=== PATIENT | female | born 2000 | race Caucasian/White ===

== ENCOUNTER 2021-03-28 11:03 | Emergency (ER) | payer MEDICAID, SELFPAY ==
--- NOTE | ~2021-03-28 | CT_ITS ---
EXAMINATION: CT thoracic lumbar w con DATE: 03/28/2021 13:45 INDICATION: Extremity weakness. TECHNIQUE: Computed tomography (CT) of the thoracic and lumbar spine was performed with 100 mL Omnipa que 350 intravenous contrast. Automated exposure control and iterative reconstruction technique were employed. The dose-length product was 1122 mGy-cm. COMPARISON: None FINDINGS: CT THORACIC SPINE: There is 6 degrees dextrocurvature of cervicothoracic spine. There is mild chronic anterior wedging of T7 and T8 vertebral bodies. The intervertebral disc heights are normal. There is mild bilateral facet joint osteoarthritis at a few levels. No neural foraminal stenosis or central c anal stenosis. CT LUMBAR SPINE: There is 7 degrees levocurvature of lumbar spine. Vertebral body heights and interve rtebral disc heights are normal. The following disc levels are specifically discussed: L1-L2: The disc does not extend beyond the endplate margin. There is mild bilateral facet joint osteo arthritis. There is no neural foraminal stenosis. There is no central canal stenosis. L2-L3: The disc does not extend beyond the endplate margin. There is mild bilateral facet joint osteo arthritis. There is no neural foraminal stenosis. There is no central canal stenosis. L3-L4: The disc is bulging. There is mild left facet joint osteoarthritis. There is mild bilateral ne ural foraminal stenosis. There is mild central canal stenosis. L4-L5: The disc is bulging. There is mild bilateral facet joint osteoarthritis. There is mild bilater al neural foraminal stenosis. There is mild central canal stenosis. L5-S1: The disc is bulging. There is mild bilateral facet joint osteoarthritis. There is mild bilater al neural foraminal stenosis. There is mild central canal stenosis. IMPRESSION: 1. Mild thoracic and lumbar spondylosis. Reviewed, dictated and finalized at location A.
--- NOTE | ~2021-03-28 | CT_ITS ---
EXAMINATION: CT cervical spine w con DATE: 03/28/2021 13:45 INDICATION: Extremity weakness. TECHNIQUE: Computed tomography (CT) of the cervical spine was performed with 100 mL Omnipaque 350 int ravenous contrast. Automated exposure control and iterative reconstruction technique were employed. T he dose-length product was 1144.28 mGy-cm. COMPARISON: None FINDINGS: There is mild kyphosis of cervical spine. There is 5 degrees dextrocurvature of cervical sp ine. Vertebral body heights and intervertebral disc heights are normal. At C7-T1, there is mild bilat eral facet joint osteoarthritis. No neural foraminal stenosis or central canal stenosis. IMPRESSION: 1. No etiology for the patient's symptoms. Reviewed, dictated and finalized at location A.
--- NOTE | ~2021-03-28 | CT_ITS ---
EXAMINATION: CT brain wo con DATE: 03/28/2021 13:45 INDICATION: Syncope. Extremity weakness. TECHNIQUE: Computed tomography (CT) of the head was performed without intravenous contrast. The mA wa s adjusted according to patient size. Iterative reconstruction technique was employed. Exam dose: 60 5.33 mGy-cm total exam DLP. COMPARISON: None FINDINGS: No intracranial mass lesion or hemorrhage or cerebrovascular accident. No midline shift or mass effect effect. Normal ventricular size. Normal isabel-white matter differentiation. No subdural or epidural hematoma. Included paranasal sinuses and mastoid air cells are normally developed and aerated, with exception o f mild soft tissue thickening of the left ethmoid air cells.. No fracture or bone destruction of the cranial vault. IMPRESSION: No intracranial abnormality Reviewed, dictated and finalized at Location A. Reviewed, dictated and finalized at location B. IMPRESSION: No intracranial abnormality
--- NOTE | ~2021-03-28 | XR_ITS ---
EXAMINATION: XR chest 2V EXAM DATE: 03/28/2021 13:39 INDICATION: Syncope. Numbness and tingling in legs. TECHNIQUE: Frontal and lateral projections of the chest obtained and reviewed. There is no prior britany dy for comparison. FINDINGS: The lungs are clear. There are no pleural effusions. The cardiomediastinal silhouette is within normal limits. There is no pneumothorax suspected. The bones and soft tissues are unremarkab le. IMPRESSION: Normal chest x-ray exam. Reviewed, dictated and finalized at location A. IMPRESSION: Normal chest x-ray exam.
[2021-03-28 11:16] VITALS: BP 128/88; PULSE 85; RESP 14; TEMP 36.8; O2SAT 99
--- NOTE | 2021-03-28 11:23 | ED.NEUROSD ---
HPI - Neuro Symptoms/Deficit General Chief Complaint: Anxiety Stated Complaint: weakness Time Seen by Provider: 03/28/21 11:23 Source: patient and family Mode of arrival: ambulatory Limitations: no limitations History of Present Illness HPI Narrative: Patient is a 21-year-old female with a history of anxiety who presents for evaluation of syncopal event. Patient also endorsing lower extremity weakness. Patient reports that 2 days previously, patient had a witnessed syncopal event at a gathering. Patient had consumed 2 alcoholic beverages, states that she had eaten normally that day, when she suddenly began to feel weak in her lower extremities and then had a positive loss of consciousness. Patient's mother arrived to the location to find the patient awake, alert and oriented reporting extreme weakness. Patient symptoms resolved, and patient was at work this morning when another episode of lower extremity weakness occurred. Patient is now reporting mid and upper back pain. She reports weakness and numbness in both legs, greater on the right leg than on the left. She denies fever or chills. No history of IV drug use. No nausea, vomiting, chest pain or shortness of breath. Patient only reports fatigue and feeling generally tired. No other complaints other than the weakness and numbness in the lower extremities. No difficulty with bowel or bladder function. No urinary retention. Related Data Allergies Allergy/AdvReac Type Severity Reaction Status Date / Time No Known Allergies Allergy Mild Verified 03/28/21 11:39 Review of Systems Review of Systems: Narrative: CONSTITUTIONAL: Denies fever, chills, or sweats. EYES: Denies visual changes, redness, or discharge. ENT: Denies rhinorrhea, congestion, sore throat, or otalgia. CARDIOVASCULAR: Denies chest pain, palpitations, or edema. RESPIRATORY: Denies cough or dyspnea. GASTROINTESTINAL: Denies abdominal pain, nausea, vomiting, or diarrhea. GENITOURINARY: Denies dysuria or hematuria. SKIN: Denies rash or itching. MUSCULOSKELETAL: Reports back pain, lower extremity weakness NEUROLOGIC: Denies headache, reports numbness in bilateral lower extremities PSYCHIATRIC: History of anxiety [facility] Social History Social History (Updated 03/28/21 @ 12:24 by Adwoa Aguiar MD) Smoking status: Never smoker Alcohol intake: current Substance use: never Living arrangements: with family Gender identity (if verbalized by the patient): Female Exam Narrative: Exam Narrative: GENERAL: Awake, alert, conversant HEAD: Normocephalic, atraumatic. EYES: 2+ PERRLA and EOMI. ENT: Nares clear, no rhinorrhea or epistaxis. Mucous membranes moist. NECK: Supple. CHEST: No respiratory distress, breathing even and non labored HEART: Regular rate, sinus rhythm ABDOMEN:Non distended, non tender EXTREMITIES: Normal range of motion. No edema. SKIN: Warm, dry, no rash. NEURO: Alert and oriented x3. Finger to nose intact bilaterally, slowed bilaterally. EOMs intact without nystagmus. No facial droop/asymmetry noted bilaterally. Grimace intact. Intact sensation in face. Hearing intact bilaterally. Shoulder shrug intact. Strength 5/5 bilateral upper extremities. Strength 3/5 bilateral lower extremities. Pt can barely lift her legs off of the hospital bed. Reflexes 2+ patellar. Heel to tatum intact bilaterally, but is incredibly slowed and almost rigid in movement. Pt can ambulate with a narrow based steady gait, no ataxia. Course Vital Signs Vital signs: Vital Signs Temperature 36.8 C 03/28/21 11:16 Pulse Rate 85 03/28/21 11:16 Respiratory Rate 14 03/28/21 11:16 Blood Pressure 128/88 03/28/21 11:16 Pulse Oximetry 99 03/28/21 11:16 Temperature 36.8 C 03/28/21 11:16 Pulse Rate 81 03/28/21 13:47 Respiratory Rate 27 H 03/28/21 13:47 Blood Pressure 128/80 03/28/21 13:47 Pulse Oximetry 100 03/28/21 13:47 MDM - Neuro Symptoms/Deficit MDM Narrative Medical decision jean-pierre
--- NOTE | 2021-03-28 12:20 | ECG_ITS ---
Measurements Intervals [place] Rate: 70 P: 42 AK: 133 QRS: 51 QRSD: 102 T: 31 QT: 388 QTc: 421 Interpretive Statements SINUS RHYTHM NORMAL ECG Electronically Signed On 03-28-2021 13:17:04 CDT by Viral Waldrop D.O.
[2021-03-28] MEDS: SODIUM CHLORIDE 0.9% IV 1,000 ML 999 ML IV CONT (12:36)
[2021-03-28 12:51] LABS: Basophils Percent Auto 0.4 % (0.2-1.2); Eosinophils Absolute Auto 0.2 K/mm3 (0-0.3); Eosinophils Percent Auto 1.9 % (0-4.4); Hematocrit 39.4 % (37.0-47.0); Hemoglobin 13.1 g/dL (12.0-15.0); Immature Granulocyte Absolute 0.02 K/mm3 (0.00-0.031); Immature Granulocyte Percent A 0.2 % (0-0.5); Lymphocytes Absolute Auto 2.98 K/mm3 (0.9-3.2); Lymphocytes Percent Auto 35.3 % (18.3-44.2); Mean Corpuscular HGB Conc 33.2 g/dl (32-36); Mean Corpuscular Volume 87.2 fl (80-100); Mean Platelet Volume 9.3 fl (7.4-10.4); Monocytes Absolute Auto 0.5 K/mm3 (0.1-0.6); Monocytes Percent Auto 5.5 % (2.6-8.5); Neutrophils Absolute Auto 4.8 K/mm3 (1.3-6.7); Neutrophils Percent Auto 56.7 % (45.5-73.1); Platelet Count Result 389 k/mm3 (150-375); Red Blood Count 4.52 M/mm3 (4.2-5.4); Red Cell Distribution Width 13.1 % (11.5-14.5); White Blood Count 8.4 K/mm3 (4.5-10.0)
[2021-03-28 12:57] LABS: Add Urine Microscopic? YES; Appearance Urine Cloudy (Clear); Bilirubin Urine Negative (Negative); Blood Urine Negative (Negative); Color Urine Yellow (Yellow); Glucose Urine UA Negative (Negative); Ketones Urine Negative (Negative); Leukocyte Esterase Ur Trace LEU/UL (Negative); Mucus Urine Heavy /lpf; Nitrate Urine Negative (Negative); Protein Urine 1+ mg/dL (Negative); Specific Grav Ur 1.028 (1.001-1.035); Squamous Epithelial Cell Urine Rare /hpf (Few)
[2021-03-28 13:01] LABS: INR 0.9; Prothrombin Time 13.1 Seconds (11.1-14.7)
[2021-03-28 13:02] LABS: Partial Thromboplastin Time 29.3 SECONDS (22.3-36.8)
[2021-03-28 13:09] LABS: Anion Gap 9 mmol/L (8-16); Blood Urea Nitrogen 9 mg/dL (7-17); CRP 0.8 mg/dL (<1.0); Calcium 9.2 mg/dL (8.4-10.2); Carbon Dioxide 24 mmol/L (22-30); Chloride 106 mmol/L (98-107); Estimated CRCL calculation 114 ml/min; Estimated Glomerular Filt Rate > 60; Glucose 92 mg/dL (65-105); Sodium 139 mmol/L (137-145)
[2021-03-28 13:15] LABS: Amphetamine Screen Urine Negative (Negative); Barbiturate Screen Urine Negative (Negative); Benzodiazepines Screen Urine Negative (Negative); Cannabinoid Screen Urine Positive (Negative); Cocaine Screen Urine Negative (Negative); Methadone Screen Urine Negative (Negative); Opiate Screen Urine Negative (Negative); Phencyclidine Screen Urine Negative (Negative)
[2021-03-28 13:24] LABS: Troponin I < 0.012 ng/mL (0.000-0.034)
[2021-03-28 13:43] LABS: Thyroid Stimulating Hormone 0.432 uIU/mL (0.465-4.680)
[2021-03-28 13:47] VITALS: BP 128/80; PULSE 81; RESP 27; O2SAT 100
[2021-03-28 15:05] VITALS: BP 132/89; PULSE 88; RESP 20; O2SAT 100
== END 2021-03-28 15:07 | disposition home or self-care (01) ==
PROVIDERS: Emergency Provider Emergency Medicine; PCP Family Medicine
DX: F41.9 Anxiety disorder, unspecified (principal); R20.2 Paresthesia of skin; M47.816 Spondylosis without myelopathy or radiculopathy, lumbar region
CPT/HCPCS: 36415; 70450; 71046; 72126; 72129; 72132; 80048; 80307; 81001; 84443; 84484; 85025; 85610; 85730; 86140; 93005; 96360; 99284; J7030; Q9967

== ENCOUNTER 2023-01-03 11:11 | Outpatient (RCR) | payer OTHER, SELFPAY ==
[2023-01-05] MEDS: RHO(D) IMMUNE GLOBULIN 300 MCG/2 ML SYRINGE IM (13:46)
== END 2023-04-03 23:59 | disposition home or self-care (01) ==
LOC: ANHLAB 11:11
PROVIDERS: PCP Family Medicine; Visit Provider Obstetrics & Gynecology
DX: Z29.13 Encounter for prophylactic Rho(D) immune globulin (principal); O36.0190 Maternal care for anti-D [Rh] antibodies, unspecified trimester, not applicable or unspecified; Z3A.00 Weeks of gestation of pregnancy not specified
CPT/HCPCS: 36415; 85461; 86850; 86900; 86901; 90384; J2790

== ENCOUNTER 2023-03-05 09:00 | Outpatient (CLI) | payer OTHER, SELFPAY ==
[2023-03-05 09:15] VITALS: BP 148/107; PULSE 97
[2023-03-05 09:27] LABS: Basophils Absolute Auto 0.1 K/mm3 (0.0-0.1); Basophils Percent Auto 0.4 % (0.2-1.2); Eosinophils Absolute Auto 0.1 K/mm3 (0-0.3); Hematocrit 34.1 % (37.0-47.0); Hemoglobin 11.3 g/dL (12.0-15.0); Immature Granulocyte Absolute 0.07 K/mm3 (0.00-0.031); Immature Granulocyte Percent A 0.6 % (0-0.5); Lymphocytes Absolute Auto 2.89 K/mm3 (0.9-3.2); Lymphocytes Percent Auto 22.7 % (18.3-44.2); Mean Corpuscular HGB Conc 33.1 g/dl (32-36); Mean Corpuscular Hemoglobin 28.6 pg (26-34); Mean Corpuscular Volume 86.3 fl (80-100); Mean Platelet Volume 10.7 fl (7.4-10.4); Monocytes Absolute Auto 0.7 K/mm3 (0.1-0.6); Monocytes Percent Auto 5.7 % (2.6-8.5); Neutrophils Absolute Auto 8.9 K/mm3 (1.3-6.7); Neutrophils Percent Auto 69.6 % (45.5-73.1); Platelet Count Result 219 k/mm3 (150-375); Red Blood Count 3.95 M/mm3 (4.2-5.4); White Blood Count 12.7 K/mm3 (4.5-10.0)
[2023-03-05 09:30] VITALS: BP 142/99; PULSE 86
[2023-03-05 09:36] LABS: Alanine Aminotransferase 19 U/L (6-35); Albumin Level 3.5 g/dL (3.5-5.1); Alkaline Phosphatase 182 U/L (38-126); Anion Gap 7 mmol/L (8-16); Aspartate Amino Transferase 26 U/L (14-36); Bilirubin,Total 0.4 mg/dL (0.2-1.3); Blood Urea Nitrogen 11 mg/dL (7-17); Calcium 8.3 mg/dL (8.4-10.2); Carbon Dioxide 21 mmol/L (22-30); Chloride 105 mmol/L (98-107); Estimated Glomerular Filt Rate > 60; Glucose 78 mg/dL (65-110); Potassium 4.2 mmol/L (3.4-5.0); Sodium 133 mmol/L (137-145); Uric Acid 4.8 mg/dL (2.5-7.5)
[2023-03-05 09:45] VITALS: BP 138/97; PULSE 92
[2023-03-05 09:47] VITALS: BP 138/97; PULSE 92
[2023-03-05 09:56] LABS: Appearance Urine Turbid (Clear); Bacteria Urine 2+ /hpf; Bilirubin Urine Negative (Negative); Blood Urine Negative (Negative); Color Urine Yellow (Yellow); Glucose Urine UA Negative (Negative); Ketones Urine Negative (Negative); Leukocyte Esterase Ur 3+ LEU/UL (NEGATIVE); Need Manual Microscopic Reviewed; Nitrate Urine Negative (Negative); Protein Urine Trace mg/dL (Negative); RBC Urine 0-2 /hpf (0-2); Specific Grav Ur 1.019 (1.001-1.035); Squamous Epithelial Cell Urine Many /hpf (Few); Urobilinogen Urine 0.2 mg/dL (<2.0); WBC Urine 51-100 /hpf (0-3)
[2023-03-05 09:58] LABS: Add Urine Microscopic? YES
[2023-03-05 10:00] VITALS: BP 126/96; PULSE 95
[2023-03-05 10:02] LABS: Creatinine Urine 115.4 mg/dL; Total Protein Urine Random 12 mg/dL
== END 2023-03-05 10:05 | disposition home or self-care (01) ==
LOC: ANHOBOP 09:07 → ANHOBPP 09:07
PROVIDERS: PCP Family Medicine; Visit Provider Obstetrics & Gynecology
DX: O13.9 Gestational [pregnancy-induced] hypertension without significant proteinuria, unspecified trimester (principal)
CPT/HCPCS: 36415; 59025; 80053; 81001; 82570; 84156; 84550; 85025; 87086; 87088; 99199

== ENCOUNTER 2023-03-05 15:46 | Inpatient (IN) | payer OTHER, SELFPAY ==
[2023-03-05] VITALS (17 sets, daily range): BP systolic 131–158; BP diastolic 81–108; PULSE 83–108; TEMP 36.3; O2SAT 94–97; BMI 30.4
[2023-03-05 16:22] LABS: Basophils Absolute Auto 0.1 K/mm3 (0.0-0.1); Basophils Percent Auto 0.4 % (0.2-1.2); Eosinophils Absolute Auto 0.1 K/mm3 (0-0.3); Eosinophils Percent Auto 0.8 % (0-4.4); Hematocrit 33.6 % (37.0-47.0); Hemoglobin 11.3 g/dL (12.0-15.0); Immature Granulocyte Absolute 0.08 K/mm3 (0.00-0.031); Immature Granulocyte Percent A 0.6 % (0-0.5); Lymphocytes Absolute Auto 2.86 K/mm3 (0.9-3.2); Lymphocytes Percent Auto 20.8 % (18.3-44.2); Mean Corpuscular HGB Conc 33.6 g/dl (32-36); Mean Corpuscular Volume 86.4 fl (80-100); Mean Platelet Volume 10.6 fl (7.4-10.4); Monocytes Absolute Auto 0.8 K/mm3 (0.1-0.6); Monocytes Percent Auto 5.5 % (2.6-8.5); Neutrophils Absolute Auto 9.9 K/mm3 (1.3-6.7); Neutrophils Percent Auto 71.9 % (45.5-73.1); Platelet Count Result 222 k/mm3 (150-375); Red Blood Count 3.89 M/mm3 (4.2-5.4); White Blood Count 13.7 K/mm3 (4.5-10.0)
[2023-03-05] MEDS: DINOPROSTONE 10 MG VAG INSERT VAGINAL (16:45)
--- NOTE | 2023-03-05 16:51 | LDADM ---
This patient, Mela Palomino, was admitted to Labor/Delivery/Recovery 108 on 03/05/23 at 15:46. Plans for labor, pain management and were discussed with patient. Patient/family oriented to hospital policies and general routines including ID bracelet, bed and alarms, visiting hours, pain management, procedures, bathroom and other care routines, personal items, smoking policy, room service/diet and guest tray routines, security routines, and visiting hours. Patient/Family are encouraged to report perceived risks to care and to ask questions if they do not understand what they are told or what they should do. See OBIX for further documentation.
[2023-03-05] MEDS: LACTATED RINGERS 1,000 ML 125 ML IV CONT (17:16)
[2023-03-05] MEDS: AMPICILLIN 2 GM/NS 100 ML 2 GM/100 ML BAG IVPB (17:17)
[2023-03-05] MEDS: AMPICILLIN 1 GM/NS 50 ML 1 GM/50 ML BAG IVPB (21:22)
[2023-03-05] MEDS: fentaNYL CITRATE INJ (*CRX) 100 MCG/2 ML VIAL 50 MCG IV PUSH (23:25)
[2023-03-06] VITALS (161 sets, daily range): BP systolic 113–160; BP diastolic 70–111; PULSE 72–207; RESP 16–18; TEMP 36.1–37.3; O2SAT 71–100
--- NOTE | 2023-03-06 00:35 | WPDANESEPP ---
Anes - Eval Pre Procedure Procedure: Labor epidural Date/Time: 03/06/23 00:35 Surgeon: Asia Box Preop Diagnosis: Abdominal pain with contractions Pre Op Diagnosis: Induction of Labor Patient Data Age: 22 Gender: F Height: 1.65 m Weight: 83 kg Last Vital Signs Temp 97.3 F L 03/05/23 17:00 Pulse 86 03/06/23 00:30 BP 150/96 H 03/06/23 00:30 Pulse Ox 90 03/06/23 00:35 O2 Del Method Room Air 03/05/23 16:19 Allergies Allergy/AdvReac Type Severity Reaction Status Date / Time No Known Allergies Allergy Mild Verified 03/28/21 11:39 Home Medications Medication Instructions Recorded Confirmed Type prenat.vits,marcial,kxr-zlby-qorej 1 tablet PO DAILY 03/05/23 03/05/23 History Laboratory Tests 03/05/23 03/05/23 03/05/23 16:16 16:16 16:16 WBC 13.7 K/mm3 H K/mm3 (4.5-10.0) RBC 3.89 M/mm3 L M/mm3 (4.2-5.4) Hgb 11.3 g/dL L g/dL (12.0-15.0) Hct 33.6 % L % (37.0-47.0) MCV 86.4 fl fl (80-100) MCH 29.0 pg pg (26-34) MCHC 33.6 g/dl g/dl (32-36) RDW 13.0 % % (11.5-14.5) Plt Count 222 k/mm3 k/mm3 (150-375) MPV 10.6 fl H fl (7.4-10.4) Immature Gran % (Auto) 0.6 % H % (0-0.5) Neut % (Auto) 71.9 % % (45.5-73.1) Lymph % (Auto) 20.8 % % (18.3-44.2) Bea[place]gard % (Auto) 5.5 % % (2.6-8.5) Eos % (Auto) 0.8 % % (0-4.4) Baso % (Auto) 0.4 % % (0.2-1.2) Lymph # (Auto) 2.86 K/mm3 K/mm3 (0.9-3.2) Bea[place]gard # (Auto) 0.8 K/mm3 H K/mm3 (0.1-0.6) Eos # (Auto) 0.1 K/mm3 K/mm3 (0-0.3) Baso # (Auto) 0.1 K/mm3 K/mm3 (0.0-0.1) Abs Immat Gran (auto) 0.08 K/mm3 H K/mm3 (0.00-0.031) Absolute Neuts (auto) 9.9 K/mm3 H K/mm3 (1.3-6.7) Absolute Nucleated RBC 0.0 K/mm3 K/mm3 (0.0-0.012) Nucleated RBC % 0.0 % % (0.0-0.2) RPR Pending Blood Type A Negative Antibody Screen Positive Antibody Identification Passive Due to RH Imm Glob Antigen Identification Cancelled JONNATHAN, IgG Interpret Not Performed JONNATHAN, Poly Interpret Negative JONNATHAN, Complement Interp Not Performed : gestational age HCG: positive Patient hx anesthesia problems: none Family hx anesthesia problems: none Results Review: All pre-operative results and documents have been reviewed as part of the pre-operative evaluation. [facility] Past Medical History Medical History Anxiety Overweight (BMI 25.0-29.9) induced hypertension and not yet delivered Surgical History Surgical History History of tonsillectomy Family History Family History Grandparent Acute myocardial infarction Diabetes mellitus Mother Hypertension Social History Social History Smoking status: Former smoker Tobacco type: e-cigarettes/vaping Alcohol intake: current Substance use: never Lack of Transportation: No Lack of Food: Never True Current Housing: I Have Housing Concerned About Future Housing: No Difficulty Paying Gas/Electric Bills: No Difficulty Paying for Meds: No Currently Unemployed: No Education: High School Diploma/GED Difficulty w/ Childcare or Family Care: No Living arrangements: with family Gender identity (if verbalized by the patient): Female Spiritual care concerns: No Exam Day of Procedure 03/06/23 00:35 Patient weight: overweight
[2023-03-06] MEDS: fentaNYL CITRATE INJ (*CRX) 100 MCG/2 ML VIAL 50 MCG IV PUSH (02:16)
[2023-03-06] MEDS: ONDANSETRON INJ 4 MG/2 ML VIAL IV PUSH (02:17)
[2023-03-06] MEDS: AMPICILLIN 1 GM/NS 50 ML 1 GM/50 ML BAG IVPB ×2 (02:34→06:45)
[2023-03-06] MEDS: LACTATED RINGERS 1,000 ML 125 ML IV CONT ×2 (04:17→08:40)
--- NOTE | 2023-03-06 06:13 | PM.IMHP ---
H&P: HPI History of Present Illness Date/Time: 03/06/23 06:13 Chief Complaint: gestational hypertension Narrative: 22-year-old 1 para 0 with an EDC of 03/23/2023 confirmed by early ultrasound and positive group B strep admitted for induction of labor secondary to worsening blood pressures. She has had diastolics in the 90s to 100s here for the last couple weeks. Normal growth has been noted. Blood pressure is of improved on rest but now are now elevated. PIH labs are normal. Induction of labor will be undertaken. [facility] Past Medical History Medical History Anxiety Overweight (BMI 25.0-29.9) induced hypertension and not yet delivered Surgical History Surgical History History of tonsillectomy Family History Family History Grandparent Acute myocardial infarction Diabetes mellitus Mother Hypertension Social History Social History Smoking status: Former smoker Tobacco type: e-cigarettes/vaping Alcohol intake: current Substance use: never Lack of Transportation: No Lack of Food: Never True Current Housing: I Have Housing Concerned About Future Housing: No Difficulty Paying Gas/Electric Bills: No Difficulty Paying for Meds: No Currently Unemployed: No Education: High School Diploma/GED Difficulty w/ Childcare or Family Care: No Living arrangements: with family Gender identity (if verbalized by the patient): Female Spiritual care concerns: No Meds Home Medications and Allergies Home Medications Medication Instructions Recorded Confirmed Type prenat.vits,marcial,jsd-rhhs-sydyu 1 tablet PO DAILY 03/05/23 03/05/23 History Allergies Allergy/AdvReac Type Severity Reaction Status Date / Time No Known Allergies Allergy Mild Verified 03/28/21 11:39 Vital Signs Vital Signs - 24 hr 03/05/23 16:19 03/05/23 16:35 03/05/23 17:00 Temperature 97.3 F L Pulse Rate 102 H 91 Blood Pressure 155/108 H 155/104 H Pulse Oximetry Oxygen Delivery Room Air 03/05/23 17:30 03/05/23 18:00 03/05/23 18:30 Temperature Pulse Rate 88 108 H 103 H Blood Pressure 142/96 H 133/89 145/99 H Pulse Oximetry Oxygen Delivery 03/05/23 19:00 03/05/23 21:13 03/05/23 22:18 Temperature Pulse Rate 100 90 96 Blood Pressure 151/94 H 158/105 H 143/96 H Pulse Oximetry Oxygen Delivery 03/05/23 22:30 03/05/23 23:00 03/05/23 23:25 Temperature Pulse Rate 83 86 Blood Pressure 136/83 131/81 Pulse Oximetry 96 Oxygen Delivery 03/05/23 23:30 03/05/23 23:35 03/05/23 23:40 Temperature Pulse Rate 100 Blood Pressure 142/101 H Pulse Oximetry 94 96 95 Oxygen Delivery 03/05/23 23:45 03/05/23 23:50 03/05/23 23:55 Temperature Pulse Rate Blood Pressure Pulse Oximetry 97 95 96 Oxygen Delivery 03/06/23 00:00 03/06/23 00:05 03/06/23 00:10 Temperature Pulse Rate 91 Blood Pressure 143/109 H Pulse Oximetry 95 95 97 Oxygen Delivery 03/06/23 00:15 03/06/23 00:20 03/06/23 00:25 Temperature Pulse Rate Blood Pressure Pulse Oximetry 97 97 98 Oxygen Delivery 03/06/23 00:30 03/06/23 00:35 03/06/23 00:40 Temperature Pulse Rate 86 Blood Pressure 150/96 H Pulse Oximetry 96 90 97 Oxygen Delivery 03/06/23 00:45 03/06/23 00:50 03/06/23 00:55 Temperature Pulse Rate Blood Pressure Pulse Oximetry 99 97 98 Oxygen Delivery 03/06/23 01:00 03/06/23 01:04 03/06/23 01:09 Temperature Pulse Rate 86 Blood Pressure 135/83 Pulse Oximetry 99 96 99 Oxygen Delivery 03/06/23 01:14 03/06/23 01:22 03/06/23 01:27 Temperature Pulse Rate Blood Pressure Pulse Oximetry 99 100 98 Oxygen Delivery 03/06/23
[2023-03-06] MEDS: OXYTOCIN 30 UNITS/NS 500 ML 30 UNITS/500 ML BAG 6 UNITS IV CONT (07:16)
--- NOTE | 2023-03-06 10:18 | P.PCNOB_ITS ---
OB - Delivery Note Procedure Delivery date: 03/06/23 Procedure: mil Events: Gestational Hypertension Induction method: Per Cervidil Protocol Delivery augmentation: Rupture of Membranes and Pitocin Delivery monitor: External FHT Route of delivery: Episiotomy description: None Laceration Description: None Quantitative Blood Loss (ml): 60 Anesthesia type: Epidural Disposition: Floor [place] Baby Date of : 03/06/23 Time of : 10:10 Weeks of gestation at delivery: 37 Infant gender: Female presentation: vertex position: Right Occiput Anterior Placenta delivery description: Spontaneous Cord Vessel Description: 3 Vessels and Delayed Cord Clamping score one minute: 9 score five minutes: 9 Narrative: amp x 4 for gbs
[2023-03-06] MEDS: miSOPROStol 200 MCG TABLET 1000 MCG RECTAL (10:55)
[2023-03-06] MEDS: OXYTOCIN 30 UNITS/NS 500 ML 30 UNITS/500 ML BAG 125 UNITS IV CONT (11:05)
[2023-03-06] MEDS: WITCH HAZEL 40 PADS 1 PAD TOPICAL (12:44)
--- NOTE | 2023-03-06 13:10 | PC.NURSE ---
Patient transferred to post room #285 via wheelchair. Support person present. Oriented to unit, room, information board, rooming in, admission packet and security measures. Patient verbalizes understanding.
[2023-03-06 13:47] LABS: Rapid Plasma Reagin Non-Reactive (NonReactive)
--- NOTE | 2023-03-06 15:29 | PC.NURSE ---
[id number] Introductions were made, then consulted with patient to assess needs related to . Mother led the conversation with her?plans to feed?her infant and the?experience so far. Resources provided for inpatient services with the name written on the white board. Mother voiced understanding of information and consents to assistance with . Mother works well with her infant with encouragement and education. Encouraged understanding of the benefits of skin to skin (demonstrating unwrapping and placing upright on her chest), stimulating with massage touch, changing positions to encourage wakefulness, how to watch for early feeding cues, responsive feeding,hand expression, feeding on demand (aiming for 8-12 times in 24 hours, about every 2-3 hours), milk production, building/maintaining a milk supply, duration of feeding, signs of adequate intake/output and how to record on the feeding sheet. Reviewed positioning and ear, shoulder, hip alignment, supporting the breast to facilitate a deep latch with the sandwich hold, asymmetrical latch (off-center), leading with the chin with a big, open, wide gape and body close to mother. latched optimally to the right breast in football position. Education given to mother of how to visualize suck/swallow ratios and listen for drinking at the breast. was able to maintain latch without discomfort to mother. Nipple care reviewed with optimal latch and good positioning. Reviewed good handwashing when or touching the breast/nipples to prevent infection. Resources used to facilitate learning were used with the tool. Mother voiced understanding of skin to skin, stimulating with massage touch, responsive feedings, hand expressed colostrum, talking to infant to encourage if it has been 2 -2.5 hours since the start of the last , to call if does not latch, or if there is discomfort with . Mother voiced understanding of information, demonstrated learning and will call if there is a request for assistance. Reported to the primary RN.
[2023-03-06] MEDS: IBUPROFEN 600 MG TABLET PO (16:29)
[2023-03-07] VITALS (9 sets, daily range): BP systolic 125–135; BP diastolic 81–101; PULSE 79–97; RESP 14–16; TEMP 36.4–36.7; O2SAT 99
[2023-03-07] MEDS: IBUPROFEN 600 MG TABLET PO ×2 (04:54→14:36)
[2023-03-07 05:28] LABS: Hematocrit 26.8 % (37.0-47.0); Hemoglobin 8.4 g/dL (12.0-15.0)
--- NOTE | 2023-03-07 07:17 | PM.OBPNVD ---
OB - PN: Subj Subjective Date/time seen: 03/07/23 07:17 Patient comments: no complaints and pain well controlled baby status: doing well OB - PN: Obj Data Labs 03/07/23 04:54 Labs: Laboratory Results - last 24 hr 03/05/23 03/07/23 16:16 04:54 Hgb 8.4 L Hct 26.8 L RPR Non-reactive Blood Type A Negative Baby's Blood Type A pos Baby's JONNATHAN Positive OB - PN A/P Plan day: 1 Plan: routine care Time Spent With Patient Time: Total time spent is greater than 50% in coordination of care (as documented) at patient's floor/unit and/or counseling patient: Time with patient: less than 15 minutes Exam Const: General: cooperative, healthy appearing, comfortable and well groomed Nutritional Appearance: average body habitus Orientation/consciousness: oriented to person, oriented to place and oriented to time HENMT: Head: normal to inspection Resp: Effort & Inspection: normal respiratory effort Cardio: Rate: regular rate Rhythm: regular rhythm Heart sounds: S1 normal heart sound present and S2 normal heart sound present GI: Inspection: normal to inspection (With fundus firm below the umbilicus)
--- NOTE | 2023-03-07 07:19 | PM.DS ---
DS: Admitting Diagnosis Discharge Date 03/08/2023 Admitting Diagnosis twin /group B strep/term DS: Discharge Diagnosis Discharge Diagnosis (1) Positive testing for group B Streptococcus: Code(s): B95.1 - Streptococcus, group B, as the cause of diseases classified elsewhere Status: Acute (2) Gestational hypertension: Code(s): O13.9 - Gestational [-induced] hypertension without significant proteinuria, unspecified trimester Status: Acute (3) Term : Code(s): Z34.90 - Encounter for supervision of normal , unspecified, unspecified trimester Status: Acute DS: Summary Hospital Course Reason for hospitalization: induction of labor at term with gestational hypertension Hospital Course: a 22-year-old now para was admitted at term for induction of labor with group B strep gestational hypertension. She underwent spontaneous vaginal delivery on 03/06/2023. Her hospital course was unremarkable. 48hour course was unremarkable. She remained afebrile. She was up, voiding without difficulty, ambulating, eating regular diet, generally without complaints. Time Spent with Patient Time attestation: Total time spent providing and/or coordinating discharge services: Exam Const: General: cooperative, healthy appearing and comfortable Nutritional Appearance: average body habitus Orientation/consciousness: oriented to person, oriented to place and oriented to time HENMT: Head: normal to inspection Resp: Effort & Inspection: normal respiratory effort Cardio: Rate: regular rate Rhythm: regular rhythm Heart sounds: S1 normal heart sound present and S2 normal heart sound present GI: Inspection: normal to inspection ( Fundus firm below the umbilicus) DS: Data Data Completed and Pending Labs on day of discharge: Labs from last 24 hours 03/07/23 03/05/23 04:54 16:16 Hgb 8.4 L Hct 26.8 L RPR Non-reactive Blood Type A Negative Antibody Screen Pending Screen Pending Baby's Blood Type A pos Baby's JONNATHAN Positive Doses of RhIg Required Pending Discharge Plan Discharge Attending physician on discharge: Dougie Sims Discharging Clinician: Dougie Sims Patient Disposition: Home, Self-Care Activity: may shower and pelvic rest Diet: heart healthy Wound Care Instructions: follow printed instructions Patient Instructions: Antibiotic Form Stand Alone Forms: General Discharge Information Follow-up/Referrals: Dougie Sims MD [Physician] - Discharge Medications: Continued Vitamin Tablet 1 tablet PO DAILY Date of admission: 03/05/23 15:46 Primary Care Provider: Sinai,Bhumi Russo Admitting Provider: Dougie Sims Attending physician on admission: Dougie Sims Condition: Stable
--- NOTE | 2023-03-07 07:34 | WPDANLDPN2 ---
Anes-Prog Note L&D Date/Time: 03/07/23 07:34 Comfortable throughout: labor and delivery Neuraxial method: epidural Epidural/Spinal procedure site: clean & non-tender Neuro status: Neuro function grossly intact. Cardiovascular status: normal Respiratory status: normal Airway patency: baseline Mental status: baseline Post-Op hydration status: normal Vital Signs: Last Vital Signs Temp 36.7 C 03/07/23 04:40 Pulse 88 03/07/23 04:40 Resp 16 03/07/23 04:40 BP 133/96 H 03/07/23 04:40 Pulse Ox 98 03/06/23 16:15 O2 Del Method Room Air 03/05/23 16:19 Pain score (VAS): 11/20 I/O: Intake & Output 03/06/23 03/06/23 03/07/23 15:59 23:59 07:59 Intake Total 1000 740 Output Total 403 Balance 597 740 Post-procedural complaints: none Patient feedback: Patient satisfied with anesthetic care.
[2023-03-07] MEDS: DOCUSATE SODIUM 100 MG CAPSULE PO ×2 (10:15→17:34)
[2023-03-07] MEDS: MULTIVIT/MIN/PREN/FOL AC/IRON TABLET 1 TAB PO (10:15)
[2023-03-07] MEDS: POLYSACCHARIDE IRON COMPLEX 150 MG CAPSULE PO ×2 (10:15→17:34)
[2023-03-07] MEDS: RHO(D) IMMUNE GLOBULIN 300 MCG/2 ML SYRINGE IM (10:43)
[2023-03-07] MEDS: LABETALOL HCL 100 MG TABLET 200 MG PO (15:15)
[2023-03-07] MEDS: ACETAMINOPHEN 325 MG TABLET 650 MG PO (19:15)
[2023-03-08 05:25] VITALS: BP 129/95; PULSE 95; RESP 16; TEMP 36.8
[2023-03-08] MEDS: ACETAMINOPHEN 325 MG TABLET 650 MG PO (05:25)
[2023-03-08] MEDS: IBUPROFEN 600 MG TABLET PO (05:25)
--- NOTE | 2023-03-08 07:22 | PM.OBPNVD ---
OB - PN: Subj Subjective Date/time seen: 03/08/23 07:22 Patient comments: no complaints and pain well controlled baby status: doing well OB - PN: Obj Data Labs 03/07/23 04:54 Labs: Laboratory Results - last 24 hr 03/07/23 04:54 Blood Type A Negative Antibody Screen Not Reportable Screen Negative Baby's Blood Type A pos Baby's JONNATHAN Positive Doses of RhIg Required 1 OB - PN A/P Plan day: 2 Plan: routine care, discharge home and follow up 6 weeks (4) Time Spent With Patient Time: Total time spent is greater than 50% in coordination of care (as documented) at patient's floor/unit and/or counseling patient: Time with patient: less than 15 minutes Exam Const: General: cooperative, healthy appearing and comfortable Nutritional Appearance: average body habitus Orientation/consciousness: oriented to person, oriented to place and oriented to time HENMT: Head: normal to inspection Resp: Effort & Inspection: normal respiratory effort Cardio: Rate: regular rate Rhythm: regular rhythm Heart sounds: S1 normal heart sound present and S2 normal heart sound present GI: Inspection: normal to inspection
[2023-03-08 08:00] VITALS: PULSE 90; RESP 16; O2SAT 100
[2023-03-08 08:35] VITALS: BP 130/92; PULSE 90; RESP 16; TEMP 36.1; O2SAT 100
[2023-03-08] MEDS: POLYSACCHARIDE IRON COMPLEX 150 MG CAPSULE PO (09:52)
[2023-03-08 09:53] VITALS: PULSE 90
[2023-03-08] MEDS: DOCUSATE SODIUM 100 MG CAPSULE PO (09:53)
[2023-03-08] MEDS: MULTIVIT/MIN/PREN/FOL AC/IRON TABLET 1 TAB PO (09:53)
[2023-03-08] MEDS: LABETALOL HCL 100 MG TABLET 200 MG PO (09:53)
--- NOTE | 2023-03-08 10:44 | PC.NURSE ---
Patient viewed the discharge video Mother & Baby Care, The First Two Weeks . Patient was given the opportunity and encouraged to ask questions. Patient verbalized understanding of information shared and has been given the mother/baby guide for home reference.
--- NOTE | 2023-03-08 14:06 | PC.NURSE ---
[id number] Mother led the conversation with her experience and plan to feed her so far and her ability to continue with the plan of breastfeed, pump, supplement to feed . Reviewed with mother the education regarding the risks of formula feeding with a bottle, protecting , and her milk supply. Mother states she may pump and feed since will need to bottle feed in 6 weeks. Reminded mother to use good handwashing technique to prevent infection. Mother is feeding appropriately for growth of and understands stimulating to eat if needed. Infant has had appropriate feedings in the last 24 hours meets the outcomes for weight, output and jaundice at this time. Mother states she is confident to continue feed her at home, when to call for assistance and denies any additional assistance or education at this time. Reinforced understanding of milk production, transition of milk, signs of adequate intake, transition of stool, prevention/relief of engorgement, responsive watching for feeding cues, the different methods of stimulating to breastfeed 2-3 hours after the start of the last feeding, community resources, medication information reviewed per [facility] and when to call a provider using the resource of the mom and baby guide. Offered assistance with before she goes home since there was an attempt at [id number], then mother bottle fed without calling for assistance. Mother voiced understanding of the education shared. Reported to the primary RN.
[2023-03-09 10:02] VITALS: BP 147/103; PULSE 103; RESP 16; TEMP 37; O2SAT 98
== END 2023-03-08 12:40 | disposition home or self-care (01) | DRG 560 ==
LOC: ANHLDR 03-06 12:06 → ANHOB2 03-06 13:18
PROVIDERS: Admitting Provider Obstetrics & Gynecology; PCP Family Medicine; Visit Provider Obstetrics & Gynecology
DX: O13.4 Gestational [pregnancy-induced] hypertension without significant proteinuria, complicating childbirth (principal); O99.824 Streptococcus B carrier state complicating childbirth; Z37.0 Single live birth; Z3A.37 37 weeks gestation of pregnancy
CPT/HCPCS: 36415; 59025; 80053; 81001; 82570; 84156; 84550; 85014; 85018; 85025; 85461; 86592; 86850; 86880; 86900; 86901; 86902; 87086; 90384; 99199; A9270; J0290; J2405; J2590; J2790; J2795; J3010; J7120